=== PATIENT | female | born 1975 | race Caucasian/White ===

== ENCOUNTER 2023-12-21 17:48 | Emergency (ER) | payer SELFPAY ==
[~2023-12-21] VITALS: Ht 172.7 cm; Wt 83.1 kg
[2023-12-21 17:50] VITALS: BP 137/78; TEMP 98.4; O2SAT 98
== END 2023-12-21 18:15 | disposition left against medical advice (07) ==
LOC: M ED 17:48
DX: Z53.21 Procedure and treatment not carried out due to patient leaving prior to being seen by health care provider (principal)